=== PATIENT | male | born 1950 | race Caucasian/White ===

== ENCOUNTER 2016-04-21 09:52 | Emergency (ER) | payer OTHER ==
[~2016-04-21] VITALS: Wt 89.0 kg
[2016-04-21] MEDS ORDERED: PRED20TA PO (10:27)
[2016-04-21] MEDS ORDERED: ACYC800T57 PO (10:27)
[2016-04-21] MEDS ORDERED: BEN50 PO (10:28)
--- NOTE | 2016-04-21 11:16 | ERD ---
DATE OF SERVICE: HISTORY OF PRESENT ILLNESS: The patient is a 65-year-old male coming in complaining of a rash to hi s right inner arm. The patient states it has been going on for 2 weeks. It developed after picking a package up from the post office. He says he has never had a rash like this before. He was using cortisone on the site which is not alleviating his symptoms. He states the rash is itchy with occa sional pain. He states that he brushes it gently it does elicit some irritation. He has no fevers, no numbness or tingling. He has not taken any oral medications for his symptoms. PAST MEDICAL HISTORY: Denies any other medical problems. ALLERGIES, MEDICATIONS, SURGICAL HISTORY: Denies. SOCIAL HISTORY: Denies. REVIEW OF SYSTEMS: A 12-point review of systems was done. Refer to HPI for positives, all other sy stems negative. PHYSICAL EXAMINATION VITAL SIGNS: Temperature 98, pulse 75, blood pressure 155/60, respiratory rate 20, O2 saturation 99 % on room air. Pain intensity is 0/10. GENERAL: The patient is well-appearing, well-nourished, no acute distress. CHEST: Clear to auscultation bilaterally. There are no rales, wheezes or rhonchi. HEART: Regular rate and rhythm. No murmurs, clicks, rubs or gallops. No S3 or S4. HEENT: Atraumatic. Conjunctivae are pink. Pupils equal, round, and reactive to light. There is no s cleral icterus. Tympanic membranes clear bilaterally. Oropharynx clear. No nystagmus or photophobia . SKIN: The patient has erythematous rash noted on the anterior of the right arm with some small ve sicular formations. There is no linear burrowing, no deroofing. There is no erythematous, beefy re d desquamation. DIAGNOSIS: Shingles versus contact dermatitis. MEDICAL DECISION MAKING: The patient has had the rash for 2 weeks. He does have some crusty vesicu lar groupings which is concerning for shingles; however, given the patient's history, the patient ma y have underlying contact dermatitis. His symptoms seem to be worsening with hydrocortisone cream w hich is more concerning for a possible underlying viral reaction. The patient will be treated for s hingles. DISCHARGE: The patient is discharged stable. The patient is given a prescription for acyclovir, pr ednisone and Benadryl and told to follow up with primary care within 1 to 2 days for reevaluation. The patient was told to stop using hydrocortisone cream. The patient was told if symptoms change or worsen to return to the ER. All other questions answered at time of discharge. Discharge summary given at the time of departure. The patient understood and complied with plan. Dictated By: RICK ORELLANA PA for WENDI REY/PERRI Conf#: [id number] DID#: [id number]
== END 2016-04-21 10:35 | disposition home or self-care (01) ==
LOC: FTE 09:52
DX: R21 Rash and other nonspecific skin eruption (principal); I10 Essential (primary) hypertension; Z95.2 Presence of prosthetic heart valve
CPT/HCPCS: 99284